=== PATIENT | female | born 1995 | race Caucasian/White ===

== ENCOUNTER 2017-05-25 17:46 | Emergency (ER) | payer BC, OTHER ==
[2017-05-25 17:53] VITALS: BP 140/89; BMI 29.0
--- NOTE | 2017-05-25 19:51 | DR.GENAD ---
HPI - PCP Primary Care Physician: DEWEY - HPI Comment HPI Comment: HISTORY BELOW. - Complaint/Symptoms Chief Complaint Doctors Comments: PAIN RIGHT ELBOW TIMES ONE DAY. NO TRAUMA. PATIENT HAVE ELBOW IN A SLING. NO FEVER. TOOK MOTRIN BUT PAIN STILL HIGH. Chief Complaint:: PATIENT STATED SHE HAS HAS RIGHT ARM PAIN SINCE YESTERDAY. SHE DENIES AND TRAUMA OR FALLS Self Treatment fo Chief Complaint: PT STATED SHE TOOK MOTRIN - Nurses notes reviewed Nurses Notes Review: Yes - Source History Provided: Patient - Mode of Arrival Mode of Arrival: Ambulatory - Timing Onset of Chief Complaint: 05/24/17 Came on: Suddenly - Duration Duration: Constant Duration: Days - Severity Severity: Moderate PMH - PMH Past Medical History: Yes Past Medical History Comment: PCOS Past Surgical History: No - Family History History of Family Medical Conditions: No - Social History Does patient currently use any type of tobacco product: No Have you used tobacco products in the last 12 months: No Type of Tobacco Use: None Does any household member use tobacco: No Alcohol Use: None Do you use any recreational Drugs:: No Lives With: Family Lives Where: Home - infectious screening In the last 2 months have you had wt loss of >10#?: NO Have you had fever, night sweats or hemotysis?: No Have you traveled outside the country in the last 6 months?: No Isolation: Standard ROS - Review of Systems Constitutional: No Symptoms Reported Eyes: No Symptoms Reported ENTM: No Symptoms Reported Respiratoy: No Symptoms Reported Cardiovascular: No Symptoms Reported Gastrointestinal/Abdominal: No Symptoms Reported Genitourinary: No Symptoms Reported Neurological: No Symptoms Reported Musculoskeletal: Muscle Pain, Right, Elbow Integumentary: No Symptoms Reported Hematologic/Lymphatic: No Symptoms Reported Endocrine: No Symptoms Reported All Other Systems: Reviewed and Negative PE - Vital Signs Vitals: Temperature 98.9 F Pulse Rate 77 Respiratory Rate 16 Blood Pressure 140/89 O2 Sat by Pulse Oximetry 100 - General Limitations: No Limitations General Appearance: Alert - Head Head Exam: Normal Inspection - Eyes Eye exam: Normal Appearance - ENT ENT Exam: Normal External Ear Exam External Ear Exam: Normal External Inspection TM/Canal Exam: Bilateral Normal Nose Exam: Normal Nose Exam Mouth Exam: Normal Inspection Throat Exam: Normal Inspection - Neck Neck Exam: Trachea Midline - Chest Chest Inspection: Symmetric Chest Wall Rise - Respiratory Respiratory Exam: Normal Lung Sounds Bilat Respiratory Exam: Bilateral Clear to Auscultation - Cardiovascular Cardiovascular Exam: Regular Rate, Normal Rhythm, Normal Heart Sounds - Abdominal Exam Abdominal Exam: Normal Bowel Sounds, Soft. negative: Tenderness - Extremities Extremities Exam: Tenderness (RIGHT ELBOW PAIN.), Joint Swelling (RIGHT ELBOW.) - Back Back Exam: Normal Inspection - Neurologic Neurological Exam: Alert, Oriented X3, CN II-XII Intact - Psychiatric Psychiatric Exam: Normal Affect, Normal Mood - Skin Skin Exam: Erythema MDM - Additional Information Additional Information Obtained From: Family - Differential Diagnosis Differential Diagnosis: RIGHT ELBOW PAIN, FRACTURE, SPRAIN, STRIN Course - Treatment Treatment: SEE ORDERS - Education/Counseling Education/Counseling: Patient, Family, Education Educated On: Treatment, Diagnosis, Needs for Follow Up ROR - XRAY XRAY Interpreted by: Self (XRAY DISCUSS WITH PATIENT NORMAL.) XRAY Findings: DISCUSS NORMAL XRAY WITH PATIENT. REPORT CONFIM SAME. - Diagnosis Discharge Problem: Right elbow pain Bursitis of elbow Qualifiers: Elbow bursitis location: unspecified Laterality: right Qualified Code(s): M70.31 - Other bursitis of elbow, right elbow - Discharge Plan Condition: Stable Prescriptions: Cyclobenzaprine HCl [FLEXERIL 10 MG *] 10 mg PO TID #60 tab Tramadol HCl 50 mg PO Q8H PRN #15 tablet PRN Reason: - Follow ups/Referrals Follow ups/Referrals: SHANEL PALOMO [Primary Care Provider] - 3 days - Instructions Instructions: Musculoskeletal Pain, Elbow Bursitis With Rehab-SportsMed Additional Instructions: RETURN TO ED IF WORSE.
[2017-05-25] MEDS ORDERED: ULTRAM PO ONE (20:10)
[2017-05-25] MEDS ORDERED: FLEXERIL TAB 10 MG PO ONE (20:11)
[2017-05-25] MEDS ORDERED: FLEXERIL TAB 10 MG ONE (20:22)
[2017-05-25] MEDS ORDERED: ULTRAM ONE (20:23)
--- NOTE | 2017-05-25 23:08 | RAD ---
HISTORY: Pain Study: Right elbow series Comparison: None Findings: No acute cortical disruption or dislocation is identified. No significant joint space effusion can b e seen. The radial head is unremarkable in its appearance. IMPRESSION: 1. Negative exam. Reported By:
== END 2017-05-25 21:09 ==
LOC: ER 17:46
DX: M70.31 Other bursitis of elbow, right elbow (principal); M25.521 Pain in right elbow
CPT/HCPCS: 73070; 99282

== ENCOUNTER 2017-09-28 02:01 | Emergency (ER) | payer BC ==
[2017-09-28 02:10] VITALS: BP 132/74; BMI 32.3
--- NOTE | 2017-09-28 03:05 | DR.GENAD ---
HPI - PCP Primary Care Physician: chante - HPI Comment HPI Comment: PAIN STARTED LAST NIGHT AND SHE IS NAUSEATED. - Complaint/Symptoms Chief Complaint Doctors Comments: RIGHT FLANK PAIN, LOWER ABDOMINAL PAIN AND DYSURIA. Chief Complaint:: c/o rt flank pain-o/s last night-also dysuria - Nurses notes reviewed Nurses Notes Review: Yes - Source History Provided: Patient - Mode of Arrival Mode of Arrival: Ambulatory - Timing Onset of Chief Complaint: 09/27/17 Came on: Suddenly - Duration Duration: Constant Duration: Hours - Severity Severity: Moderate PMH - PMH Past Medical History: Yes Past Medical History Comment: polycystic ovarian syndrome Past Surgical History: No - Family History History of Family Medical Conditions: No - Social History Do you use any recreational Drugs:: No - infectious screening In the last 2 months have you had wt loss of >10#?: NO Have you had fever, night sweats or hemotysis?: No Have you traveled outside the country in the last 6 months?: No Isolation: Standard ROS - Review of Systems Constitutional: No Symptoms Reported Eyes: No Symptoms Reported ENTM: No Symptoms Reported Respiratoy: No Symptoms Reported Cardiovascular: No Symptoms Reported Gastrointestinal/Abdominal: No Symptoms Reported, Abdominal Pain, Nausea Genitourinary: Dysuria Neurological: No Symptoms Reported Musculoskeletal: Back Pain, Back (RT FLANK PAIN) Integumentary: No Symptoms Reported All Other Systems: Reviewed and Negative PE - Vital Signs Vitals: Temperature 98.6 F Pulse Rate 64 Respiratory Rate 16 Blood Pressure 132/74 O2 Sat by Pulse Oximetry 100 - General Limitations: No Limitations General Appearance: Alert - Head Head Exam: Normal Inspection - Eyes Eye exam: Normal Appearance - ENT ENT Exam: Normal External Ear Exam External Ear Exam: Normal External Inspection TM/Canal Exam: Bilateral Normal Nose Exam: Normal Nose Exam Mouth Exam: Normal Inspection Throat Exam: Normal Inspection - Neck Neck Exam: Trachea Midline - Chest Chest Inspection: Symmetric Chest Wall Rise - Respiratory Respiratory Exam: Normal Lung Sounds Bilat Respiratory Exam: Bilateral Clear to Auscultation - Cardiovascular Cardiovascular Exam: Regular Rate, Normal Rhythm, Normal Heart Sounds - Abdominal Exam Abdominal Exam: Normal Bowel Sounds, Soft. negative: Tenderness - Extremities Extremities Exam: Normal Inspection - Back Back Exam: (R) CVA Tenderness - Neurologic Neurological Exam: Alert, Oriented X3 - Psychiatric Psychiatric Exam: Normal Affect, Normal Mood - Skin Skin Exam: Normal Color MDM - Additional Information Additional Information Obtained From: Family - Differential Diagnosis Differential Diagnosis: UTI, KIDNEY STONE, ABDOMINAL PAIN, FLANK PAIN/RT Course - Treatment Treatment: SEE ORDERS. - Education/Counseling Education/Counseling: Patient, Family, Education Educated On: Treatment, Diagnosis, Needs for Follow Up ROR - Labs Reviewed Laboratory Results Reviewed?: Yes Result Diagrams: 09/28/17 03:17 09/28/17 03:17 Laboratory: WBC 7.8 X10^3/uL (3.6-10.0) 09/28/17 03:17 RBC 4.63 X10^6/uL (3.5-5.4) 09/28/17 03:17 Hgb 13.0 g/dL (12.0-16.0) 09/28/17 03:17 Hct 37.8 % (36.0-47.0) 09/28/17 03:17 MCV 81.6 fL (80.0-100.0) 09/28/17 03:17 MCH 28.1 pg (27.0-34.0) 09/28/17 03:17 MCHC 34.5 g/dL (33.0-35.0) 09/28/17 03:17 RDW 14.5 % (11.6-16.5) 09/28/17 03:17 Plt Count 245 X10^3/uL (150.0-450.0) 09/28/17 03:17 MPV 7.7 fL (7.4-11.0) 09/28/17 03:17 Neut % 72.8 % (42.0-75.0) 09/28/17 03:17 Lymph % 20.1 % (21.0-51.0) L 09/28/17 03:17 [place] % 6.1 % (0.0-13.0) 09/28/17 03:17 Eos % 0.8 % (0.9-2.9) L 09/28/17 03:17 Baso % 0.2 % (0.2-1.0) 09/28/17 03:17 Neut # 5.7 x10^3/uL (2.2-4.8) H 09/28/17 03:17 Lymph # 1.6 X10^3/uL (1.3-2.9) 09/28/17 03:17 [place] # 0.5 x10^3/uL (0.3-0.8) 09/28/17 03:17 Eos # 0.1 x10^3/uL (0.0-0.2) 09/28/17 03:17 Baso # 0.0 X10^3/uL (0.0-0.1) 09/28/17 03:17 Absolute Nucleated RBC 0.0 /100WBC 09/28/17 03:17 Sodium 138 mmol/L (136-145) 09/28/17 03:17 Corrected Sodium 139 mmol/L (136-145) 09/28/17 03:17 Potassium 3.5 mmol/L (3.5-5.1) 09/28/17 03:17 Chloride 101 mmol/L (98-107) 09/28/17 03:17 Carbon Dioxide 26.3 mmol/L (21-32) 09/28/17 03:17 BUN 9 mg/dL (7-18) 09/28/17 03:17 Creatinine 0.92 mg/dL (0.55-1.02) 09/28/17 03:17 Est GFR (MDRD) Af Amer > 60 (>60) 09/28/17 03:17 Est GFR (MDRD) Non-Af > 60 (>60) 09/28/17 03:17 Glucose 131 mg/dL (65-99) H 09/28/17 03:17 Calcium 8.7 mg/dL (8.5-10.1) 09/28/17 03:17 Corrected Calcium 9.3 mg/dL (8.5-10.1) 09/28/17 03:17 Total Bilirubin 0.20 mg/dL (0.2-1.0) 09/28/17 03:17 AST 15 Units/L (15-37) 09/28/17 03:17 ALT 19 Units/L (12-78) 09/28/17 03:17 Alkaline Phosphatase 123 Units/L (46-116) H 09/28/17 03:17 Total Protein 7.6 g/dL (6.4-8.2) 09/28/17 03:17 Albumin 3.3 g/dL (3.4-5.0) L 09/28/17 03:17 Globulin 4.3 g/dL (2.5-4.5) 09/28/17 03:17 Albumin/Globulin Ratio 0.8 Ratio (1.1-2.1) L 09/28/17 03:17 Amylase 37 Units/L (25-115) 09/28/17 03:17 Lipase 125 Units/L (73-393) 09/28/17 03:17 HCG, Qual Negative <10 mIU/mL 09/28/17 03:17 Specimen Type Clean catch urine 09/28/17 02:57 Urine Color [place] (YELLOW) 09/28/17 02:57 Urine Appearance Clear (CLEAR) 09/28/17 02:57 Urine pH Cancelled 09/28/17 02:56 Ur Specific [place] Cancelled 09/28/17 02:56 Urine Protein Cancelled 09/28/17 02:56 Urine Glucose (UA) Cancelled 09/28/17 02:56 Urine Ketones Cancelled 09/28/17 02:56 Urine Occult Blood Cancelled 09/28/17 02:56 Urine Nitrite Cancelled 09/28/17 02:56 Urine Bilirubin Cancelled 09/28/17 02:56 Urine Urobilinogen Cancelled 09/28/17 02:56 Ur Leukocyte Esterase Cancelled 09/28/17 02:56 Urine RBC 15-20 /HPF (NEGATIVE) 09/28/17 02:57 Urine WBC 0-3 /HPF (NEGATIVE) 09/28/17 02:57 Ur Squamous Epith Cells Numerous /HPF (NEGATIVE) 09/28/17 02:57 Ur Transition Epith Cell Cancelled 09/28/17 02:56 Ur Renal Epithelial Cell Cancelled 09/28/17 02:56 Calcium Oxalate Crystal Cancelled 09/28/17 02:56 Cystine Crystals Cancelled 09/28/17 02:56 Uric Acid Crystals Cancelled 09/28/17 02:56 Triple Phos Crystals Cancelled 09/28/17 02:56 Tyrosine Crystals Cancelled 09/28/17 02:56 Other Crystals Cancelled 09/28/17 02:56 Amorphous Sediment Cancelled 09/28/17 02:56 Urine Bacteria Trace /HPF (Negative) 09/28/17 02:57 Hyaline Casts Cancelled 09/28/17 02:56 Granular Casts Cancelled 09/28/17 02:56 Fine Granular Casts Cancelled 09/28/17 02:56 Coarse Granular Casts Cancelled 09/28/17 02:56 WBC Casts Cancelled 09/28/17 02:56 Other Casts Cancelled 09/28/17 02:56 Urine Mucus Few /HPF (NEGATIVE) 09/28/17 02:57 Urine Trichomonas Cancelled 09/28/17 02:56 Urine Yeast Cancelled 09/28/17 02:56 Urine Sperm Cancelled 09/28/17 02:56 Ur Culture Indicated? No/not indicated 09/28/17 02:57 Micro UA Comment Unable to perform (-) 09/28/17 02:57 - XRAY XRAY Interpreted by: Radiologist XRAY Findings: REPORT DISCUSS WITH PATIENT. - Diagnosis Discharge Problem: Right flank pain, Kidney stone on right side Hydronephrosis Qualifiers: Hydronephrosis type: unspecified Qualified Code(s): N13.30 - Unspecified hydronephrosis Abdominal pain Qualifiers: Abdominal location: generalized Qualified Code(s): R10.84 - Generalized abdominal pain - Discharge Plan Condition: Stable Prescriptions: Hydrocodone-Acet 5 mg/325 mg [[place] 5/325 mg Tab] 1 tab PO Q6H PRN #15 tab PRN Reason: Pain Ketorolac Tromethamine [Toradol Tab] 10 mg PO Q8H PRN #15 tab PRN Reason: Pain Tamsulosin HCl [Flomax] 0.4 mg PO DAILY #10 cap - Follow ups/Referrals Follow ups/Referrals: FLIP JUAREZ [Primary Care Provider] - 3 days ECSAR KEARNEY [CONSULTING PHYSICIAN] - 09/29/17 - Instructions Instructions: Kidney Stones, [id number], Hydronephrosis Additional Instructions: RETURN TO ED IF WORSE.
[2017-09-28 03:30] LABS: APPEARANCE,URINE CLEAR (CLEAR); BACTERIA,URINE Trace /HPF (Negative); COLOR,URINE ORANGE (YELLOW); MUCUS,URINE FEW /HPF (NEGATIVE); RBC,URINE 15-20 /HPF (NEGATIVE); SQUAMOUS EPITHELIAL CELL,UR NUMEROUS /HPF (NEGATIVE)
[2017-09-28 03:41] LABS: BASOPHILS % (AUTO) 0.2 % (0.2-1.0); EOSINOPHILS # (AUTO) 0.1 x10^3/uL (0.0-0.2); EOSINOPHILS % (AUTO) 0.8 % (0.9-2.9); HEMATOCRIT 37.8 % (36.0-47.0); LYMPHOCYTES # (AUTO) 1.6 X10^3/uL (1.3-2.9); LYMPHOCYTES % (AUTO) 20.1 % (21.0-51.0); MEAN CORPUSCULAR HEMOGLOBIN 28.1 pg (27.0-34.0); MEAN CORPUSCULAR HGB CONC 34.5 g/dL (33.0-35.0); MEAN CORPUSCULAR VOLUME 81.6 fL (80.0-100.0); MEAN PLATELET VOLUME 7.7 fL (7.4-11.0); MONOCYTES # (AUTO) 0.5 x10^3/uL (0.3-0.8); MONOCYTES % (AUTO) 6.1 % (0.0-13.0); NEUTROPHILS # (AUTO) 5.7 x10^3/uL (2.2-4.8); NEUTROPHILS % (AUTO) 72.8 % (42.0-75.0); PLATELET COUNT 245 X10^3/uL (150.0-450.0); RED BLOOD COUNT 4.63 X10^6/uL (3.5-5.4); RED CELL DISTRIBUTION WIDTH 14.5 % (11.6-16.5); WHITE BLOOD COUNT 7.8 X10^3/uL (3.6-10.0)
[2017-09-28 03:47] LABS: ALANINE AMINOTRANSFERASE 19 Units/L (12-78); ALBUMIN 3.3 g/dL (3.4-5.0); ALKALINE PHOSPHATASE 123 Units/L (46-116); AMYLASE 37 Units/L (25-115); ASPARTATE AMINO TRANSFERASE 15 Units/L (15-37); BLOOD UREA NITROGEN 9 mg/dL (7-18); CALCIUM 8.7 mg/dL (8.5-10.1); CARBON DIOXIDE 26.3 mmol/L (21-32); CHLORIDE 101 mmol/L (98-107); COR CA(FOR HYPOALB) 9.3 mg/dL (8.5-10.1); COR NA(FOR HYPERGLY) 139 mmol/L (136-145); CREATININE 0.92 mg/dL (0.55-1.02); LIPASE 125 Units/L (73-393); SODIUM 138 mmol/L (136-145); TOTAL PROTEIN 7.6 g/dL (6.4-8.2); eGFR BLACK RACES > 60 (>60); eGFR NON BLACK RACES > 60 (>60)
[2017-09-28 04:11] LABS: SERUM PREGNANCY TEST, QUAL NEGATIVE <10 mIU/mL
[2017-09-28] MEDS ORDERED: TORADOL 60 MG VIAL ONE (04:29)
--- NOTE | 2017-09-28 04:29 | CT ---
CT abdomen and pelvis without contrast Indication: Right flank pain Comparison: None available Technique: Multiple axial images of the abdomen and pelvis were obtained from the lung bases to the pubic symphy sis without the administration of IV contrast. Findings: The visualized portions of the lung bases are unremarkable. The bony structures are grossly intact. Bilateral L5 spondylolysis without spondylolisthesis. Given the limitations of lack of IV contrast administration the liver, gallbladder, spleen, pancreas, and adrenal glands are unremarkable in their CT appearance. Mild right hydronephrosis secondary to an approximate 2 mm stone within distal right ureter on axial image 73. No left-sided stone or hydronephrosis. No bowel wall thickening or bowel dilatation is present. The colon and rectum are unremarkable. The urinary bladder is grossly unremarkable. The appendix is normal. No mesenteric lymphadenopathy or stranding can be observed. No free fluid or free air is seen within the abdomen. IMPRESSION: 1. An approximate 2 mm stone within distal right ureter causes mild hydronephrosis. 2. Bilateral L5 spondylolysis without spondylolisthesis. Reported By:
[2017-09-28] MEDS ORDERED: TORADOL 60 MG VIAL IM ONE (04:34)
== END 2017-09-28 06:21 | disposition home or self-care (01) ==
LOC: ER 02:01
DX: N20.0 Calculus of kidney (principal); N13.30 Unspecified hydronephrosis; R10.84 Generalized abdominal pain; M47.9 Spondylosis, unspecified
CPT/HCPCS: 36415; 74176; 80053; 81015; 82150; 83690; 84703; 85025; 96372; 99283; 99284; J1885